=== PATIENT | female | born 1930 | race Caucasian/White ===

== ENCOUNTER 2016-12-03 15:58 | Inpatient (IN) ==
[2016-12-03] MEDS ORDERED: Vancomycin 1,000 MG in D5% in Water 250 ML IVPB ONE (16:47)
[2016-12-03 16:55] LABS: Basophils % 0.1 %; Hemoglobin 10.3 g/dL (11.5-15.4); Immature Granulocytes % 1.9 % (0-4); Lymphocytes # 0.3 K/mcL (0.6-4.6); Lymphocytes % 1.8 %; Mean Corpuscular HGB Conc 34.3 g/dL (31.6-35.5); Mean Corpuscular Hemoglobin 32.5 pg (28.0-33.3); Mean Corpuscular Volume 94.6 fL (83.0-100.0); Mean Platelet Volume 9.5 fL (9.4-12.4); Monocytes # 0.3 K/mcL (0.0-1.3); Monocytes % 1.5 %; Neutrophils # 17.1 K/mcL (1.6-8.9); Platelet Count 128 K/mcL (140-400); Red Blood Count 3.17 M/mcL (3.82-4.97); Red Cell Distribution Width 15.4 % (11.5-14.5); Segmented Neutrophils % 94.7 %
[2016-12-03 17:09] LABS: Albumin 2.8 g/dL (3.5-5.0); Albumin/Globulin Ratio 0.5 (1.1-2.2); Calcium 9.1 mg/dL (8.6-10.8); Globulin 5.1 g/dL (2.4-3.5); Potassium 3.6 mEq/L (3.5-4.5); Total Protein 7.9 g/dL (6.0-8.3)
--- NOTE | 2016-12-03 17:11 | Emergency Department Note ---
Disposition Clinical Impression: Cellulitis of leg, left Disposition: Admitted As Inpatient Condition: Fair Referrals: Rajan Flores CNP [Primary Care Provider] - Forms: ED Satisfaction Letter General Adult HPI - General Chief complaint: ED Skin/Abscess/Foreign Body Stated complaint: general illness Time Seen by Provider: 12/03/16 16:24 Source: patient, family, EMS Limitations: other Nursing Notes Reviewed: Yes Vital Signs Reviewed: Yes - History of Present Illness HPI Narrative: 86-year-old female was brought to the emergency department for evaluation of bilateral leg swelling and left leg redness. The patient has dementia and history is obtained from her granddaughter. Patient currently denies any pain, shortness of breath, nausea vomiting, or fevers. Granddaughter states that she has not seen the patient for a couple months and when she arrived at her home today she noticed that her legs were significantly swollen and her left leg to be red. Granddaughter states that she was taking care of her until the last couple months when her uncle took over. Granddaughter states that the only medicine she has been taking is her high blood pressure medicine. Granddaughter states she supposed to be on a water pill but does not know the name of it or whether not she has any of it at home. Patient is also supposed be taking Synthroid which granddaughter states has not been given to her as well. Pain Scale: 5 - Related Data Home Medications Medication Instructions Recorded Confirmed Amlodipine Besylate 5 mg PO BID 12/03/16 12/03/16 Allergies Allergy/AdvReac Type Severity Reaction Status Date / Time amlodipine [From Norvas] Allergy Itching Verified 07/09/15 14:05 losartan [Losartan] Allergy Itching Verified 07/09/15 14:05 metoprolol Allergy Itching Verified 07/09/15 14:05 aspirin AdvReac Gastrointestinal Verified 07/09/15 14:05 Upset hydrochlorothiazide AdvReac Itching Verified 07/09/15 14:05 lisinopril AdvReac See Verified 07/09/15 14:05 Comments Penicillins AdvReac Gastrointestinal Verified 07/09/15 14:05 Upset Sulfa (Sulfonamide AdvReac See Verified 07/09/15 14:05 Antibiotics) Comments Limitations: ROS unobtainable due to patients medical condition (secondary to dementia) Past Medical History - Past Medical History Attestation: Yes The following information was validated with the patient. 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 . The patient appears [asymptomatic], nontoxic, and [does not appear ill]. There is [no pain]. HENT: Head: Normocephalic and atraumatic. Right Ear: External ear normal. Left Ear: External ear normal. Nose: Nose normal. Mouth/Throat: Oropharynx is clear and mucous membranes show [good hydration.][] Eyes: Conjunctivae and EOM are normal. Pupils are equal, round, and reactive to light. Right eye exhibits [no] discharge. Left eye exhibits [no] discharge. Neck: Trachea is midline, normal range of motion and [phonation normal]. Neck supple. Cardiovascular: [Regular rhythm], S1 normal, S2 normal, normal heart sounds and intact distal pulses. Exam reveals no gallop and no friction rub. No murmur heard. [Capillary refill is brisk.] [Peripheral pulses are 2+] Pulmonary/Chest: Effort [normal] No stridor. [No] tachypnea. [No] respiratory distress. There are [no] decreased breath sounds. [There no wheezes, no rhonchi , or rales.] Abdominal: Soft. [Bowel sounds are normal]. There exhibits [no] distension and [no] mass. There is no hepatosplenomegaly. There is [no tenderness], [no] CVA tenderness. There is [no rigidity, no rebound, no guarding]. Musculoskeletal: Normal range of motion of uninvolved extremities. There exhibits 2+ pitting edema. left lower extremity shows redness from her foot up to her mid calf Neurological: Patient is alert. Patient displays no atrophy and no tremor. No cranial nerve deficit and exhibits normal muscle tone. Coordination normal. Skin: Skin is warm and dry. No rash noted. No erythema. [Skin color is normal.} Psychiatric: Patient has a normal mood,affect, behavior, judgment, and thought content. Course Course Narrative: Patient shows evidence of elevated white count. I will speak with Dr. Camarena's about admission. He will accept the patient on admission. Vital Signs Temperature 98.3 F 12/03/16 16:09 Pulse Rate 94 12/03/16 16:09 Respiratory Rate 18 12/03/16 16:09 Blood Pressure 151/88 12/03/16 16:09 O2 Sat by Pulse Oximetry 97 12/03/16 16:09 Temperature 98.3 F 12/03/16 16:09 Pulse Rate 94 12/03/16 16:09 Respiratory Rate 18 12/03/16 16:09 Blood Pressure 151/88 12/03/16 16:09 O2 Sat by Pulse Oximetry 97 12/03/16 16:09 Oxygen Delivery Oxygen Delivery Room Air Medical Decision Making - Lab Data Lab results reviewed: Yes I reviewed the patient's lab results. Result diagrams: 12/03/16 16:40 12/03/16 16:40 Lab Results 12/03/16 12/03/16 12/03/16 Range/Units 16:40 16:40 18:15 WBC 18.1 H (4.3-11.1) K/mcL RBC 3.17 L (3.82-4.97) M/mcL Hgb 10.3 L (11.5-15.4) g/dL Hct 30.0 L (35.3-44.9) % MCV 94.6 (83.0-100.0) fL MCH 32.5 (28.0-33.3) pg MCHC 34.3 (31.6-35.5) g/dL RDW 15.4 H (11.5-14.5) % Plt Count 128 L (140-400) K/mcL MPV 9.5 (9.4-12.4) fL Immature Gran % 1.9 (0-4) % Seg Neutrophils % 94.7 % Lymphocytes % 1.8 % Monocytes % 1.5 % Eosinophils % 0.0 % Basophils % 0.1 % Neutrophils # 17.1 H (1.6-8.9) K/mcL Lymphocytes # 0.3 L (0.6-4.6) K/mcL Monocytes # 0.3 (0.0-1.3) K/mcL Eosinophils # 0.0 (0.0-0.6) K/mcL Basophils # 0.0 (0.0-0.2) K/mcL VBG Lactic Acid 2.8 H (0.5-2.2) mmol/L Sodium 133 L (136-145) mEq/L Potassium 3.6 (3.5-4.5) mEq/L Chloride 97 L (98-109) mEq/L Carbon Dioxide 26 (19-29) mEq/L BUN 27 H (7-20) mg/dL Creatinine 1.34 H (0.57-1.11) mg/dL Est GFR ( Amer) 46 L (> 60) Est GFR (Non-Af Amer) 38 L (> 60) BUN/Creatinine Ratio 20 (6-26) Glucose 99 (70-99) mg/dL Calculated Osmolality 281 (280-300) Calcium 9.1 (8.6-10.8) mg/dL Total Bilirubin 1.0 (0.2-1.2) mg/dL AST 27 (5-34) Units/L ALT 10 (0-55) Units/L Alkaline Phosphatase 138 H (38-126) Units/L Serum Total Protein 7.9 (6.0-8.3) g/dL Albumin 2.8 L (3.5-5.0) g/dL Globulin 5.1 H (2.4-3.5) g/dL Albumin/Globulin Ratio 0.5 L (1.1-2.2) - Radiology Data Radiology results reviewed: Yes I reviewed the patient's radiology results. XR/XR chest 1V portable IMPRESSION: Left pleural effusion with left basilar opacity that may represent consolidation from pneumonia versus atelectasis. Multiple pulmonary nodules suggesting calcified granulomata, however increase in number since prior [address] may be helpful for further evaluation. Increased prominence of the right hilar shadow may be secondary to vascular prominence. Again, chest CT may be helpful further evaluation.
[2016-12-03] MEDS ORDERED: Naloxone 0.4 MG/ML INJ IVP PRN (18:29)
[2016-12-03] MEDS ORDERED: MOM Conc 10 ML UD.LIQ PO PRN (18:29)
[2016-12-03] MEDS ORDERED: Ondansetron ODT 4 MG TAB.RAPDIS SL PRN (18:29)
[2016-12-03] MEDS ORDERED: amLODIPine 5 MG TABLET PO SCH (21:00)
--- NOTE | 2016-12-03 22:14 | Internal Med History&Physical ---
Date of Encounter: 12/03/16 Time of Encounter: 21:33 Assessment and Plan (1) Cellulitis of leg, left Current visit: Yes Status: Acute Cellulitis of the left lower extremity. Cultures were obtained tonight. She was given vancomycin in the ER and will start Rocephin intravenously. She needs better hygiene and will be given a shower tomorrow. The present time I do not think the lesions on her legs are from bedbugs, none were seen. D-dimer ordered to help rule out DVT. Likely the edema is dependent edema from being in the wheelchair a lot of the time. We have been told that she was on a " water pill" in the past, the old records show she was on chlorthalidone but that was discontinued for hypertension several months ago. (2) Pleural effusion, left Current visit: Yes Status: Acute Left pleural effusion. Cannot rule out pneumonia. She also has multiple pulmonary nodules. Clinically her lungs are clear and symptomatically she denies any pulmonary symptoms. We will get a follow-up chest x-ray and/or CT scan when she is improved and more mobile from prior cellulitis (3) Dementia Current visit: Yes Status: Acute She is a poor historian, she admits does not remember things well. She also has hypothyroidism and I suspect subtherapeutic on her medication. TSH has been ordered. B12 will be ordered. There is lots of social situation problems at home and she likely needs reliable 24-hour care. Qualifiers: Dementia type: unspecified type Qualified Code(s): F03.90 - Unspecified dementia without behavioral disturbance (4) Hypertension Current visit: Yes Status: Chronic History of hypertension chronically. Has been on amlodipine. It is not been refilled in a while according to the pharmacies when called in the ER. For now we will hold medications, follow her blood pressure and decide whether she needs treatment or not. Qualifiers: Hypertension type: essential hypertension Qualified Code(s): I10 - Essential (primary) hypertension (5) Hypothyroidism Current visit: Yes Status: Acute History of hypothyroidism. According to the family she has not been taking this medication. TSH is pending. Qualifiers: Hypothyroidism type: unspecified Qualified Code(s): E03.9 - Hypothyroidism , unspecified (6) Aortic aneurysm Current visit: Yes Status: Chronic She has a known aortic aneurysm that measured 5 cm in diameter couple of years ago. She met with Dr. Warner a vascular specialist and she did not want intervention. Again she tonight said she "does not want them with a cut on her. " She confirms that she is not to have life-support. "When God is ready he will take me and I will have to go" Qualifiers: Presence of rupture: without rupture Qualified Code(s): I71.9 - Aortic aneurysm of unspecified site, without rupture (7) Pulmonary nodules Current visit: Yes Status: Chronic She has had multiple pulmonary nodules in the past as well. Looks worse now. We will decide workup based on her other medical problems. She apparently has not wanted workup in the past. No pulmonary symptoms currently. She does have a pleural effusion will be reassessed later. (8) High risk social situations Current visit: Yes Status: Acute It is unclear as to how well she is taking care of at home by the granddaughter Luly. The son looks in on her every day. I cannot reach Luly. Two phone numbers that I tried are no longer working. The patient appears to be unkempt, dirt or feces is caked between her toes and in her sandals. She is obviously not bathe in a while. She is not very mobile. She has not been getting her medications refilled according to the pharmacy. She admits she has a poor memory. The son confirms that she does not leave the house. Has not been grocery shopping etc. (though she thinks she has been). It appears that she will need 24-hour care, I am not sure she can get that at home right now. There has been rumors amongst the staff that of heard that the caregiver situation is involved in drugs or recent rehab. (9) Physical deconditioning Current visit: Yes Status: Acute Patient is generally weak. According to the son she does not walk more than a few steps. She is basically couch and wheelchair bound. We will have her be evaluated by physical therapy and occupational therapy. I suspect that she has not been getting her thyroid supplement and she may be profoundly hypothyroid. I believe she will benefit from therapies. She may need long-term care/ECF. (10) Chronic kidney disease Current visit: Yes Status: Acute Her creatinine is elevated. She has had elevated creatinine in the past. This may be prerenal. She will have IV fluids and then reevaluate. This may be acute kidney injury on chronic kidney disease. Qualifiers: Chronic kidney disease stage: unspecified stage Qualified Code(s): N18.9 - Chronic kidney disease, unspecified (11) DVT prophylaxis Current visit: Yes Status: Acute Lovenox was ordered by the ER physician. Internal Medicine - H&P: HPI Chief complaint: I do not know why I am here Admitted From: Emergency Dept Plans for Post Hospital Care: Home History of present illness: Ms. Estrada is a 86 year old female who is a patient of nurse practitioner Rajan Flores, but patient has not been in the office since July of this year and his had no-show appointments since then. The history is rather vague from the patient because she states she does not remember very well. She does not know why she is in the hospital. Conversation with the ER physician and with her son Frederick via phone reveals that the patient was brought to the emergency room because of swelling in her legs. Her son Frederick looks in on her daily but a granddaughter Luly Estrada lives with her. The son knew that the patient was taking blood pressure pill twice a day. He thought that was only thing that she had recently. He said at one time she took a water pill, but does not think she takes a day longer. He did not mention the thyroid pill. He states that she sleeps on the couch, when she is up and around she is usually in a wheelchair. She can walk a few steps when she is in the bathroom. Otherwise she is fairly wheelchair or couch bound. She says she likes to watch TV and listens to music. She cannot tell me what type of music she likes to listen to. Frederick says that she takes a bath and that Luly's responsibility, but he admits it has likely been a while since she has had a bath. She does not really leave the house. He says she has had cognitive decline since her about a year and a half ago. He states she would not want to be on life support. She confirms this. She also wants no intervention for her aortic aneurysm. She does admit that she is a smoker but cannot tell me how many times she smokes or when she had her last cigarette. She does not smell like she is a smoker. Information from the office chart reveals that there is a phone call stating that a grandson was living with her for a while and he was cooking and doing drugs in the home. The patient states she does not know anything about a grandson living in the home, she states she has been taking care of her granddaughter Luly since she was born because her mother did not want her. Patient is not sure if she has 2 sons or not. She does list Frederick and Bryson to me, but she does not know which one is Luly's father. She states she just does not remember many things Regarding why she is here, she did not know that she has an infection in her left lower extremity. She did not know that she has swelling in the lower extremities. She really denies any acute or chronic medical problems other than she does not remember well. The son does not know how long she has had redness or swelling. Past Med Surg Social Fam HX - Past Medical History Source: patient (At times the patient really did not know the answer), old records reviewed Medical history: aortic aneurysm (She has refused operative intervention, last measurement was 5 cm a couple of years ago), hypertension, thyroid disease Psychiatric history: anxiety - Past Surgical History Surgical History: other (Lumbar discectomy 1972) - Social History Smoking Status: Current every day smoker (She cannot tell me how many cigarettes she smokes. Her office record states that she smokes up to a pack a day since age 20. She does not know when her last cigarette was though.) Smokeless Tobacco Status: No Alcohol use: none Drug use: none - Family History Father Living Status: Age at : 67 Hx Family Cancer: Yes ("Stomach cancer") Mother Living Status: Age at : 93 Hx Family Endocrine Disorder: Yes (History of diabetes) Brother History Unknown: Yes (All of her family lives in [facility], not sure about how her brothers or sisters or their medical problems) Internal Medicine - H&P: Meds Amlodipine Besylate 5 mg PO BID 12/03/16 [History] Allergies losartan [Losartan] Allergy (Verified 07/09/15 14:05) Itching metoprolol Allergy (Verified 07/09/15 14:05) Itching amlodipine [From Norvasc] Adverse Reaction (Mild, Verified 12/03/16 19:08) Itching aspirin Adverse Reaction (Verified 07/09/15 14:05) Gastrointestinal Upset hydrochlorothiazide Adverse Reaction (Verified 07/09/15 14:05) Itching lisinopril Adverse Reaction (Verified 07/09/15 14:05) See Comments Penicillins Adverse Reaction (Verified 07/09/15 14:05) Gastrointestinal Upset Sulfa (Sulfonamide Antibiotics) Adverse Reaction (Verified 07/09/15 14:05) See Comments ROS unobtainable: other (Review of systems is hard to evaluate as she states she has a poor memory.) - Constitutional Constitutional: no fever(s), no falls, no night sweats - EENT Eyes: no loss of vision Ears: no decreased hearing, no ear discharge, no ear pain Nose, mouth and throat: no neck pain, no sore throat - Cardiovascular Cardiovascular ROS IM: no chest pain, no dyspnea, no dyspnea on exertion, no irregular heart rhythm, no lightheadedness, no palpitations, no syncope - Respiratory Respiratory: no cough, no hemoptysis, no dyspnea on exertion, no wheezing, no chest congestion - Gastrointestinal Gastrointestinal: no abdominal pain, no constipation, no diarrhea, no hematemesis, no melena, no nausea, no vomiting - Genitourinary Genitourinary: no difficulty voiding, no dysuria, no pelvic pain, no urinary frequency Menstruation: post menopausal - Musculoskeletal Musculoskeletal ROS IM: no arthralgias, no back pain, no deformity, no joint swelling, no muscle weakness - Integumentary Integumentary IM: no new lesions, no rash, no skin ulcer, no unusual bruising, no jaundice - Neurological Neurological ROS: as per HPI (She does note that she does not remember things well), no focal weakness, no frequent falls, no radicular pain, no tremor(s), no weakness - Psychiatric Psychiatric: memory loss, no auditory hallucinations, no depression, no suicidal ideation - Hematologic/Lymphatic Hematologic/Lymphatic: no easy bruising, no lymphadenopathy - Constitutional Vitals: Temp Pulse Resp BP Pulse Ox 97.8 F 89 17 157/80 98 12/03/16 19:21 12/03/16 19:21 12/03/16 19:21 12/03/16 19:21 12/03/16 19:21 General appearance: Present: cachectic, A&O X 1, disheveled, no acute distress. Absent: answers questions appropriately (She repeatedly says that she has a poor memory just does not remember) - Head Head exam: Present: atraumatic - Eye Eye exam: Present: EOMI. Absent: scleral icterus Pupils: Present: PERRL - ENT ENT exam: Present: mucous membranes moist, normal oropharynx (Except she has full set of dentures), TM's normal bilaterally - Neck Neck exam general surgery: Absent: lymphadenopathy, tenderness, nuchal rigidity , thyromegaly - Respiratory Respiratory exam: Present: CTAB - Cardiovascular Cardiovascular exam: Present: RRR (Minor sinus arrhythmia noted.), +S1, +S2. Absent: systolic murmur - GI/Abdominal GI/Abdominal exam: Present: normal bowel sounds, no peritoneal signs. Absent: guarding, mass, rigid, tenderness - Extremities Exam Extremities exam: Present: normal capillary refill. Absent: calf tenderness, joint swelling Additional comments: Both lower extremities show mild pitting edema. The left is worse than the right. Left lower extremity shows erythema in the distal three quarters of the lower leg and the foot and toes. It is warm/hot. Multiple small scratches and pinpoint excoriated areas are noted. Old scars from previous lesions noted. She has good dorsalis pedis pulse. She has dirt and debris between her toes. Negative Homans sign. There is no skin breakdown such as decubitus. No calf tenderness. No posterior popliteal masses. No thigh tenderness or lesions. No linear streaks. Surprisingly the lower extremity is not very tender. - Back Exam Back exam: Absent: rash noted, vertebral tenderness - Neurological Exam Neurological exam: Present: alert, CN II-XII intact, strengths equal and symetr throughout - Psychiatric Psychiatric exam: Present: flat affect, normal mood. Absent: suicidal ideation - Skin Skin exam: Present: erythema (Left lower extremity as discussed above.) Additional comments: Bruise noted over the left upper buttock area, purple in color and measuring about 8 cm in diameter Internal Med - H&P Results - Labs CBC & Chem 7: 12/03/16 16:40 12/03/16 16:40 Labs: White blood cell count is elevated. Creatinine is elevated. Mild anemia and mildly diminished platelets - EKG Data EKG shows normal: sinus rhythm (The sinus arrhythmia) - Diagnostic Studies Chest x-ray Additional comments: Chest x-ray shows left pleural effusion. No obvious infiltrate. Multiple areas of nodules in the lungs bilaterally.
[2016-12-03] MEDS ORDERED: 0.9 % Sodium Chloride 1,000 ML ONE (22:46)
[2016-12-03] MEDS ORDERED: *HR* Enoxaparin 30 MG/0.3 ML SYRINGE SQ SCH (23:45)
[2016-12-04] MEDS: 0.9 % Sodium Chloride 1,000 ML IVC SCH (00:03)
[2016-12-04 05:33] LABS: Basophils % 0.1 %; Eosinophils % 0.1 %; Hematocrit 25.7 % (35.3-44.9); Hemoglobin 8.9 g/dL (11.5-15.4); Immature Granulocytes % 1.3 % (0-4); Lymphocytes # 0.5 K/mcL (0.6-4.6); Mean Corpuscular HGB Conc 34.6 g/dL (31.6-35.5); Mean Corpuscular Hemoglobin 32.6 pg (28.0-33.3); Mean Corpuscular Volume 94.1 fL (83.0-100.0); Mean Platelet Volume 9.4 fL (9.4-12.4); Monocytes # 0.3 K/mcL (0.0-1.3); Monocytes % 1.8 %; Neutrophils # 14.1 K/mcL (1.6-8.9); Platelet Count 102 K/mcL (140-400); Red Blood Count 2.73 M/mcL (3.82-4.97); Red Cell Distribution Width 15.4 % (11.5-14.5); Segmented Neutrophils % 93.7 %
[2016-12-04 05:43] LABS: Calcium 8.3 mg/dL (8.6-10.8); Potassium 3.6 mEq/L (3.5-4.5)
[2016-12-04] MEDS ORDERED: *HR* Enoxaparin 30 MG/0.3 ML SYRINGE SQ SCH (07:00)
[2016-12-04] MEDS: *HR* Enoxaparin 60 MG/0.6 ML SYRINGE SQ SCH ×2 (09:23→21:50)
--- NOTE | 2016-12-04 12:39 | Internal Med Progress Note ---
Date of Encounter: 12/04/16 Time of Encounter: 12:33 - Assessment and plan (1) Cellulitis of leg, left Current Visit: Yes Status: Acute Assessment and plan: Cellulitis is minimally improved, less swelling today. The skin is weeping though. Continue with the Rocephin. Blood cultures are pending. (2) Pleural effusion, left Current Visit: Yes Status: Acute Assessment and plan: History of pleural effusion on admission. We will recheck in the next day or so. No pulmonary symptoms. (3) Dementia Current Visit: Yes Status: Acute Assessment and plan: Her dementia is chronic. Her TSH came back elevated at 91. Some of this exacerbation may be from hypothyroidism. B12 level was normal. VDRL is pending. Qualifiers: Dementia type: unspecified type Qualified Code(s): F03.90 - Unspecified dementia without behavioral disturbance (4) Hypertension Current Visit: Yes Status: Chronic Assessment and plan: High blood pressure is actually under control with no medications. We will just monitor for now and the amlodipine was held. Qualifiers: Hypertension type: essential hypertension Qualified Code(s): I10 - Essential (primary) hypertension (5) Hypothyroidism Current Visit: Yes Status: Acute Assessment and plan: TSH is elevated at 91. Likely she has not been taking her medication. We will restart her Synthroid at the last recorded dose. Qualifiers: Hypothyroidism type: unspecified Qualified Code(s): E03.9 - Hypothyroidism , unspecified (6) Aortic aneurysm Current Visit: Yes Status: Chronic Assessment and plan: She is not to have intervention. She has no symptoms localizing to this. Qualifiers: Presence of rupture: without rupture Qualified Code(s): I71.9 - Aortic aneurysm of unspecified site, without rupture (7) Pulmonary nodules Current Visit: Yes Status: Chronic Assessment and plan: History of pulmonary nodules. She does have a pleural effusion. She did not want interventions regarding the aortic aneurysm. I do not think that intervention for the pulmonary nodules is desired by the patient. She is a DNR CCA (8) High risk social situations Current Visit: Yes Status: Acute Assessment and plan: I spoke with son Frederick today and he thinks that her color is better. youth worker has spoken to son Rick and granddaughter Luly. Apparently Rick has power of deli cutter slicer, but does not visit his mother very often. Luly takes care of her in the home but states that the check goes to Rick and bills are not getting paid. In any case, all are in agreement that ECF placement at [facility] is appropriate and to be arranged. (9) Physical deconditioning Current Visit: Yes Status: Acute Assessment and plan: Once we find out whether she has a DVT in the left lower extremity weak and then initiate PT and OT. She will need ECF placement for ongoing therapies as well. (10) Chronic kidney disease Current Visit: Yes Status: Chronic Assessment and plan: Improvement in her acute kidney injury. She does have a history of chronic kidney disease. Some of this was prerenal. Likely she has stage III likely she has stage III chronically. She seems to be taking adequate by mouth and we will discontinue the IV fluids. Qualifiers: Chronic kidney disease stage: stage 3 (moderate) Qualified Code(s): N18.3 - Chronic kidney disease, stage 3 (moderate) (11) DVT prophylaxis Current Visit: Yes Status: Acute (12) Thrombocytopenia Current Visit: Yes Status: Acute Assessment and plan: She had mild thrombocytopenia on admission, slightly worse today. Still platelets are over 100,000. Doubt this is related to her Lovenox. No active bleeding. We will follow. We will hold Lovenox if her count drops significantly. (13) Anemia Current Visit: Yes Status: Acute Assessment and plan: She had mild anemia on admission, and it dropped after hydration. Some of this may be from hemoconcentration. Hemoccult testing to be done. The anemia may be from chronic renal disease, GI loss, nutritional, hypothyroidism, etc. She is not a great candidate for upper and lower endoscopy workup of this. She is hemodynamically stable. We will check her iron levels. Qualifiers: Anemia type: unspecified type Qualified Code(s): D64.9 - Anemia, unspecified - Subjective Interval history: Patient rested well last night. She had a shower this morning. She denies any cardiac respiratory symptoms. When I sat her up she complained of left medial thigh pain temporarily. She has been eating well. She has a good appetite. Her son Frederick was in and he remarked how much better she looked today and better color. We talked about future plans and her likely to require physical therapy and [facility] placement at least temporarily and she prefers [facility]. She seems to be quite agreeable with that plan - Constitutional Vitals: Temp Pulse Resp BP Pulse Ox 98.3 F 68 16 132/79 96 12/04/16 11:15 12/04/16 11:15 12/04/16 11:15 12/04/16 07:22 12/04/16 11:15 General appearance: Present: A&O X 2, no acute distress. Absent: answers questions appropriately (She cannot recall my name, but recognized me. She repeats herself a lot) - Respiratory Respiratory exam: Present: CTAB. Absent: respiratory distress, wheezes - Cardiovascular Cardiovascular exam: Present: RRR, +S1, +S2. Absent: gallop, systolic murmur - GI/Abdominal GI/Abdominal exam: Present: normal bowel sounds, soft. Absent: tenderness - Extremities Exam Additional comments: The left lower extremity is still reddened to the same extent. The left is still warm. There are some areas that are now weeping. There is no skin breakdown on the heel. There is a bit less edema bilaterally particularly at the anterior ankle area showing some wrinkles. Intermittently she has some left medial thigh tenderness but no cords, redness, linear streaks, and she has good range of motion of the hip passively. Internal Medicine: Result - Labs CBC & Chem 7: 12/04/16 05:10 12/04/16 05:10 Labs: Short CBC 12/04/16 Range/Units 05:10 WBC 15.0 H (4.3-11.1) K/mcL Hgb 8.9 L (11.5-15.4) g/dL Hct 25.7 L (35.3-44.9) % Plt Count 102 L (140-400) K/mcL Neutrophils # 14.1 H (1.6-8.9) K/mcL BMP 12/04/16 05:10 Sodium 130 L Potassium 3.6 Chloride 97 L Carbon Dioxide 25 BUN 27 H Creatinine 1.16 H Glucose 91 Calcium 8.3 L White blood cell count is improved. I suspect her blood was hemoconcentrated as her hemoglobin dropped from 10 down to 8.9 after hydration. We will check Hemoccult. Her platelet count continues to be low but adequate for now, we will continue to monitor. Creatinine is improved after hydration. Her sodium dropped a bit with hydration. Right now she is eating adequately and we will likely not need further IV fluids - ABG Interpretation ABG results: PT/INR, D-dimer D-Dimer > 8520 ng/mLFEU (0-500) H 12/03/16 21:43 Consult Discharge Plan - Plan Referrals: Otilio Camarena MD [Primary Care Provider] -
[2016-12-04] MEDS: Acetaminophen 325 MG TABLET PO PRN (22:35)
[2016-12-05 04:57] LABS: Basophils % 0.1 %; Eosinophils % 0.2 %; Hemoglobin 7.9 g/dL (11.5-15.4); Immature Granulocytes % 0.7 % (0-4); Lymphocytes # 0.6 K/mcL (0.6-4.6); Lymphocytes % 4.8 %; Mean Corpuscular HGB Conc 34.3 g/dL (31.6-35.5); Mean Corpuscular Hemoglobin 32.4 pg (28.0-33.3); Mean Corpuscular Volume 94.3 fL (83.0-100.0); Mean Platelet Volume 9.7 fL (9.4-12.4); Monocytes # 0.3 K/mcL (0.0-1.3); Monocytes % 2.8 %; Platelet Count 108 K/mcL (140-400); Red Blood Count 2.44 M/mcL (3.82-4.97); Red Cell Distribution Width 15.3 % (11.5-14.5); Segmented Neutrophils % 91.4 %
[2016-12-05 05:11] LABS: Calcium 7.9 mg/dL (8.6-10.8); Potassium 3.5 mEq/L (3.5-4.5)
[2016-12-05] MEDS: 0.9 % Sodium Chloride 1,000 ML IVC SCH (07:40)
--- NOTE | 2016-12-05 08:28 | Electrocardiograph Report ---
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
--- NOTE | 2016-12-05 09:27 | Internal Med Progress Note ---
Date of Encounter: 12/05/16 Time of Encounter: 09:21 - Assessment and plan (1) Cellulitis of leg, left Current Visit: Yes Status: Acute Assessment and plan: Definite improvement of the left lower extremity cellulitis. Still a long way to go. Venous ultrasound to rule out DVT planned for today. (2) Pleural effusion, left Current Visit: Yes Status: Acute Assessment and plan: History of incidental left pleural effusion on admission chest x-ray. When patient is more mobile we will repeat that with the standing AP and lateral chest x-ray. No obvious congestive heart failure or pneumonia. She does have edema/myxedema from her hypothyroidism which could contribute to this. (3) Dementia Current Visit: Yes Status: Acute Assessment and plan: Pleasant dementia. She repeats herself a lot. She does not know some of the answers but today she knew my name. She frequently says "I just do not remember " Qualifiers: Dementia type: unspecified type Qualified Code(s): F03.90 - Unspecified dementia without behavioral disturbance (4) Hypertension Current Visit: Yes Status: Chronic Assessment and plan: Blood pressure intermittently is elevated, but for the most part under reasonable control without medication. We will continue to follow. Qualifiers: Hypertension type: essential hypertension Qualified Code(s): I10 - Essential (primary) hypertension (5) Hypothyroidism Current Visit: Yes Status: Acute Assessment and plan: Her levothyroxine was restarted. Qualifiers: Hypothyroidism type: unspecified Qualified Code(s): E03.9 - Hypothyroidism , unspecified (6) Aortic aneurysm Current Visit: Yes Status: Chronic Assessment and plan: No symptoms or signs localizing to the aortic aneurysm. She does not want any intervention anyway. Qualifiers: Presence of rupture: without rupture Qualified Code(s): I71.9 - Aortic aneurysm of unspecified site, without rupture (7) Pulmonary nodules Current Visit: Yes Status: Chronic Assessment and plan: Repeat chest x-ray to be done when she is more mobile. We will consider CT scan , but I am not sure going to make a difference in the long run for this patient who does not want intervention for her aortic aneurysm and is DNR CCA. (8) High risk social situations Current Visit: Yes Status: Acute Assessment and plan: We anticipate placement at [facility] on Saturday. (9) Physical deconditioning Current Visit: Yes Status: Acute Assessment and plan: We will initiate PT and OT once we rule out DVT. (10) Chronic kidney disease Current Visit: Yes Status: Chronic Assessment and plan: She has a history of chronic kidney disease, stage III generally. However, with fluids her creatinine has now much improved. We will continue to follow. Likely she had acute kidney injury from dehydration and/or the infection. Underlying kidney disease is likely from her hypertension. Qualifiers: Chronic kidney disease stage: stage 3 (moderate) Qualified Code(s): N18.3 - Chronic kidney disease, stage 3 (moderate) (11) Thrombocytopenia Current Visit: Yes Status: Acute Assessment and plan: When she was admitted she had relatively low platelets, it is now stable. We will plan to continue Lovenox for now particularly if we are trying to rule out DVT. (12) Anemia Current Visit: Yes Status: Acute Assessment and plan: Her hemoglobin continues to drift downward. Initially it may have been falsely improved with hemoconcentration. No active bleeding is noted. She has not had a good bowel movement to test for GI bleed. Some of the anemia may be reactive to her acute kidney injury, possibly malnutrition, etc. We will continue to monitor. Hemodynamically stable and not needing transfusion. She is not a great candidate right now to workup anemia with upper and lower endoscopies. She does not want intervention for her aortic aneurysm, and she is DNR CCA. I think there is a definite limit that she is placed on intervention. Qualifiers: Anemia type: unspecified type Qualified Code(s): D64.9 - Anemia, unspecified (13) DVT prophylaxis Current Visit: Yes Status: Acute - Subjective Interval history: Patient denies any chest pain, palpitations, dyspnea, abdominal pain. She thinks her leg is getting better. She denies any pain. He has been eating well. She slept well last night. She has no new complaints. Last night nurse reported that the patient had left thigh pain, but patient does not remember that. Having no complaints today. - Constitutional Vitals: Temp Pulse Resp BP Pulse Ox 97.6 F 65 16 132/72 98 12/05/16 07:17 12/05/16 07:17 12/05/16 07:17 12/05/16 07:17 12/05/16 07:17 General appearance: Present: A&O X 2, no acute distress - Respiratory Respiratory exam: Present: CTAB. Absent: respiratory distress - Cardiovascular Cardiovascular exam: Present: RRR, +S1, +S2. Absent: systolic murmur - GI/Abdominal Additional comments: Abdomen is slightly distended but soft. No tenderness. Her bowels have not moved well. - Extremities Exam Additional comments: Left lower extremity is less red and hot. The extent of the erythema is receding. She does have an area of weeping of clear fluid in the lateral ankle area. She is able to move her foot. No calf tenderness. No skin breakdown on her heel. Less edema and starting to have some wrinkles in both ankles. She has no tenderness in the thigh. She has good passive range of motion of the hip. No pain with movement of the knee. Internal Medicine: Result - Labs CBC & Chem 7: 12/05/16 04:48 12/05/16 04:48 Labs: Short CBC 12/05/16 Range/Units 04:48 WBC 12.0 H (4.3-11.1) K/mcL Hgb 7.9 L (11.5-15.4) g/dL Hct 23.0 L (35.3-44.9) % Plt Count 108 L (140-400) K/mcL Neutrophils # 11.0 H (1.6-8.9) K/mcL BMP 12/05/16 04:48 Sodium 130 L Potassium 3.5 Chloride 98 Carbon Dioxide 23 BUN 24 H Creatinine 1.09 Glucose 77 Calcium 7.9 L hemoglobin has slowly dropped to 7.9. No stool for heme testing available yet. Sodium stable 130. Creatinine has normalized. Platelet count stable at 108. White blood cell count is almost normal. - ABG Interpretation ABG results: PT/INR, D-dimer D-Dimer > 8520 ng/mLFEU (0-500) H 12/03/16 21:43 Consult Discharge Plan - Plan Referrals: Otilio Camarena MD [Primary Care Provider] -
[2016-12-05] MEDS: *HR* Enoxaparin 60 MG/0.6 ML SYRINGE SQ SCH (10:35)
[2016-12-05 11:28] LABS: % Iron Saturation 12 % (15-50); Iron 20 mcg/dL (50-170); Transferrin 121 mg/dL (180-382)
[2016-12-05] MEDS: *HR* Rivaroxaban 15 MG TABLET PO SCH (20:29)
[2016-12-06 05:32] LABS: Basophils % 0.3 %; Eosinophils % 0.3 %; Hematocrit 21.2 % (35.3-44.9); Hemoglobin 7.3 g/dL (11.5-15.4); Immature Granulocytes % 1.5 % (0-4); Lymphocytes # 0.7 K/mcL (0.6-4.6); Lymphocytes % 6.3 %; Mean Corpuscular HGB Conc 34.4 g/dL (31.6-35.5); Mean Corpuscular Hemoglobin 32.7 pg (28.0-33.3); Mean Corpuscular Volume 95.1 fL (83.0-100.0); Mean Platelet Volume 9.5 fL (9.4-12.4); Monocytes # 0.6 K/mcL (0.0-1.3); Monocytes % 5.3 %; Platelet Count 129 K/mcL (140-400); Red Blood Count 2.23 M/mcL (3.82-4.97); Red Cell Distribution Width 15.2 % (11.5-14.5); Segmented Neutrophils % 86.3 %
[2016-12-06 05:34] LABS: Calcium 7.8 mg/dL (8.6-10.8); Potassium 3.3 mEq/L (3.5-4.5)
--- NOTE | 2016-12-06 08:19 | Internal Med Progress Note ---
Date of Encounter: 12/06/16 Time of Encounter: 08:00 - Assessment and plan (1) Cellulitis of leg, left Current Visit: Yes Status: Acute Assessment and plan: Cellulitis of the left lower extremity is showing improvement. White blood cell count is normal. She has had no fever. Continue with the Rocephin for now. We are planning long-term placement for ongoing care. (2) Acute deep vein thrombosis (DVT) of left lower extremity Current Visit: Yes Status: Acute Assessment and plan: Verbal report to me was that she has an acute DVT of the left lower extremity that has extended into the femoral area. I do not have a written report yet. Within 24 hours of her admission we had placed her on Lovenox at therapeutic doses for presumed DVT. We have now switched to Xarelto and discontinued Lovenox Qualifiers: Qualified Code(s): I82.402 - Acute embolism and thrombosis of unspecified deep veins of left lower extremity (3) Pleural effusion, left Current Visit: Yes Status: Acute Assessment and plan: She had a small left pleural effusion on admission. Follow-up chest x-ray to be done today. She is having no respiratory symptoms. This may be from her hypothyroidism, anemia or other etiology. She does have pulmonary nodules. She is not particularly interested in a workup or aggressive care. (4) Dementia Current Visit: Yes Status: Acute Assessment and plan: Pleasantly cognitively impaired. She does remember my name sometimes though. She is uncertain of answers to questions. It is difficult for her to follow more than 1 step command. She needs 24-hour supervision and care. We are planning ECF placement. Qualifiers: Dementia type: unspecified type Qualified Code(s): F03.90 - Unspecified dementia without behavioral disturbance (5) Hypertension Current Visit: Yes Status: Chronic Assessment and plan: Hypertension is under good control without medication. Her med/amlodipine was held on admission, I am not sure she was really taking them anyway. Qualifiers: Hypertension type: essential hypertension Qualified Code(s): I10 - Essential (primary) hypertension (6) Hypothyroidism Current Visit: Yes Status: Acute Assessment and plan: Her levothyroxine had been restarted during this hospital stay. Her TSH was 91. Qualifiers: Hypothyroidism type: unspecified Qualified Code(s): E03.9 - Hypothyroidism , unspecified (7) Aortic aneurysm Current Visit: Yes Status: Chronic Assessment and plan: She refuses intervention. She has declined intervention for the past few years. Qualifiers: Presence of rupture: without rupture Qualified Code(s): I71.9 - Aortic aneurysm of unspecified site, without rupture (8) Pulmonary nodules Current Visit: Yes Status: Chronic Assessment and plan: Follow-up chest x-ray today. She is not a great candidate for further workup, CT or biopsy interventions given her unwillingness to intervene regarding her aortic aneurysm. (9) High risk social situations Current Visit: Yes Status: Acute Assessment and plan: She will be going to [facility] tomorrow if things go as planned and patient stable. (10) Physical deconditioning Current Visit: Yes Status: Acute Assessment and plan: PT and OT will be evaluating patient today. I like to see what they can do for her ADLs, transfers, being up in the room, grooming and dressing etc. I am not anticipating aggressive therapy as she does have an acute DVT. (11) Chronic kidney disease Current Visit: Yes Status: Chronic Assessment and plan: Her creatinine is slightly worse today, but improved from admission. Qualifiers: Chronic kidney disease stage: stage 3 (moderate) Qualified Code(s): N18.3 - Chronic kidney disease, stage 3 (moderate) (12) Thrombocytopenia Current Visit: Yes Status: Acute Assessment and plan: Thrombocytopenia is improved. (13) Anemia Current Visit: Yes Status: Acute Assessment and plan: Her hemoglobin is now down to 7.3. I am not sure how much of this is from hemoconcentration and then rehydration, acute kidney injury causing anemia, chronic disease and malnutrition causing anemia etc. We have not been able to capture stool for heme testing. She does have iron deficiency anemia. She does not quite meet recommendations for transfusion at this time. She is hemodynamically stable. Iron supplementation has been started. She is not a great candidate for upper and lower endoscopies at this time. Qualifiers: Anemia type: unspecified type Qualified Code(s): D64.9 - Anemia, unspecified (14) DVT prophylaxis Current Visit: Yes Status: Acute - Subjective Interval history: Patient denies any chest pain, palpitation, dyspnea. She has been eating well and has a good appetite. She is not requiring anything special for pain for the left lower extremity. She has a poor memory but does recall that she has gotten infection in her left lower extremity. She denies any thigh pain or hip pain. She does recall that she will be going to a long-term instead of going home. She denies any other acute symptoms or problems currently. - Constitutional Vitals: Temp Pulse Resp BP Pulse Ox 98.5 F 72 16 142/67 97 12/06/16 07:33 12/06/16 07:33 12/06/16 07:33 12/06/16 07:33 12/06/16 07:33 General appearance: Present: A&O X 2, no acute distress - Respiratory Additional comments: Lungs are clear except for a few atelectatic crackles in both bases. No respiratory distress. - Cardiovascular Cardiovascular exam: Present: RRR, +S1, +S2. Absent: systolic murmur - GI/Abdominal GI/Abdominal exam: Present: soft. Absent: mass, tenderness - Extremities Exam Additional comments: The erythema warmth and induration of the left lower extremity is receding. Generalized less redness. Not particularly tender. Some wrinkles are appearing in the lower ankle area. No linear streaks going up her leg. No fight tenderness. No masses palpable. No cords present. Good passive range of motion of the hip and knee. Scant amount of clear weeping from an open area in the left lateral calf area. No calf tenderness. Good range of motion of the foot and ankle actively. Negative Homans sign. Internal Medicine: Result - Labs CBC & Chem 7: 12/06/16 05:15 12/06/16 05:15 Labs: Short CBC 12/06/16 Range/Units 05:15 WBC 10.5 (4.3-11.1) K/mcL Hgb 7.3 L (11.5-15.4) g/dL Hct 21.2 L (35.3-44.9) % Plt Count 129 L (140-400) K/mcL Neutrophils # 9.0 H (1.6-8.9) K/mcL BMP 12/06/16 05:15 Sodium 134 L Potassium 3.3 L Chloride 100 Carbon Dioxide 25 BUN 18 Creatinine 1.12 H Glucose 87 Calcium 7.8 L Hemoglobin has dropped further to 7.3. White blood cell count is now normal. Platelet count is 129,000. Potassium low at 3.3. We will plan to recheck. She is not on a diuretic. Creatinine is slightly worse than yesterday but improved from baseline. - ABG Interpretation ABG results: PT/INR, D-dimer D-Dimer > 8520 ng/mLFEU (0-500) H 12/03/16 21:43 Consult Discharge Plan - Plan Referrals: Otilio Camarena MD [Primary Care Provider] -
[2016-12-06] MEDS: Acetaminophen 325 MG TABLET PO PRN (10:20)
[2016-12-06] MEDS: *HR* Rivaroxaban 15 MG TABLET PO SCH ×2 (10:20→19:53)
--- NOTE | 2016-12-06 15:37 | Physician Discharge Referral ---
ExtendedCare Referral Info Transfer To: [facility] Provider in Charge: Jayjay Provider in Charge after Transfer: Other () Institutional Level of Care: Skilled - Diagnosis (1) Cellulitis of leg, left Status: Acute (2) Acute deep vein thrombosis (DVT) of left lower extremity Status: Acute (3) Pleural effusion, left Status: Acute (4) Dementia Status: Acute (5) Hypertension Status: Chronic (6) Hypothyroidism Status: Acute (7) Aortic aneurysm Status: Chronic (8) Pulmonary nodules Status: Chronic (9) High risk social situations Status: Acute (10) Physical deconditioning Status: Acute (11) Chronic kidney disease Status: Chronic (12) Thrombocytopenia Status: Acute (13) Anemia Status: Acute (14) DVT prophylaxis Status: Acute - Transfer Medications Home Medications: Acetaminophen [Tylenol] 650 mg PO Q6HR PRN #0 tablet 12/06/16 [Rx] Ferrous Sulfate 325 mg PO TIDWM tablet 12/06/16 [Rx] Levothyroxine [Synthroid] 200 mcg PO DAILY@0630 tablet 12/06/16 [Rx] Rivaroxaban [Xarelto] 15 mg PO BID tablet 12/06/16 [Rx] Allergies/Adverse Reactions: Allergies losartan [Losartan] Allergy (Verified 12/04/16 02:39) Itching metoprolol Allergy (Verified 12/04/16 02:39) Itching amlodipine [From Norvasc] Adverse Reaction (Mild, Verified 12/04/16 02:39) Itching aspirin Adverse Reaction (Verified 12/04/16 02:39) Gastrointestinal Upset hydrochlorothiazide Adverse Reaction (Verified 12/04/16 02:39) Itching lisinopril Adverse Reaction (Verified 12/04/16 02:39) See Comments Penicillins Adverse Reaction (Verified 12/04/16 02:39) Gastrointestinal Upset Sulfa (Sulfonamide Antibiotics) Adverse Reaction (Verified 12/04/16 02:39) See Comments - Respiratory Orders Smoking Cessation: Smoking cessation has been advised. For more information, call the [place] Tobacco Quit Line at 0-203-AALC-NOW. - Ancillary Orders May use pressure relief devices daily prn, May consult with Dentist, Circulation Representative, Adult Daycare Coordinator PRN - Advance Directives Power of Operator Electronic Warfare: Yes Code Status: DNR-Arrest - Mobility Orders Ambulate - Rehabiliation Orders Rehab Potential: Good Rehab Orders: Evaluation for Physical Therapy, Evaluation for Occupational Therapy - Treatments Skin tear care topically daily PRN per policy - Diet Orders No Added Salt (SUSAN) CERTIFICATION: I certify that the transfer of the above named patient to an Extended Care Facility is necessary for the continuing treatment of the diagnosis listed. The above information is true and accurate reflection of patient's current condition. Confidential - Redisclosure prohibited without a patient's written consent.
--- NOTE | 2016-12-06 17:20 | Venous Imaging Report ---
LE Venous Duplex Patient Name:Tray Estrada Order Number:[id number] Procedure Date:12/05/2016 Date:1930ge:86 yrs Gender:Female Location:[facility] OP Room #: 112 Sales Effectiveness Manager:Flores Cruz RVT Referring MD:Otilio Camarena MD addiction therapist:Same as Ordering Provider Reading MD:Juan F Mckinney MD Primary Indications:elevated d-dimer, swelling Secondary Indications: Risk Factors Yes/No Hx of DVT No Impressions: Lower extremity abnormal deep exam: left common femoral through popliteal vein demonstrates acute thrombosis. Recommendations: Critical findings reported to Nurse in person by Flores Cruz RVT. Findings Venous Duplex Results: Right: Venous imaging of the lower extremity reveals full patency and normal vessel compressibility of the right common femoral. Doppler signals in the evaluated veins were normal. Left: Venous imaging of the lower extremity reveals full patency and normal vessel compressibility of the left distal iliac and left great saphenous. Doppler signals in the evaluated veins were normal. There is an acute partially occlusive thrombus seen in the left common femoral. It demonstrates a partially compressible vein. Flow was phasic and it did augment. There is an acute partially occlusive thrombus seen in the left superficial femoral. It demonstrates a partially compressible vein. Flow was phasic and it did augment. There is an acute partially occlusive thrombus seen in the left popliteal. It demonstrates a partially compressible vein. Flow was phasic and it did augment. The left posterior tibial, left peroneal and left lesser saphenous veins were not assessed. Prior Study: No prior study available for comparison. Lower Extremity Venous Duplex Side Vein Compress Spontaneous Flow Augment Diameter (cm) Depth (cm) Left Distal Iliac Normal yes Phasic yes Left Common Femoral Partial yes Phasic yes Left Superficial Femoral Partial yes Phasic yes Left Popliteal Partial yes Phasic yes Left Posterior Tibial Left Peroneal Left Great Saphenous Normal yes Phasic yes Left Lesser Saphenous Right Common Femoral Normal yes Phasic yes Updated by Juan F Mckinney MD on 12/06/2016 5:13:53 PM electronically signed on 12/06/2016 5:14:05 PM with status of Final
[2016-12-07 05:39] LABS: Basophils % 0.1 %; Eosinophils # 0.1 K/mcL (0.0-0.6); Eosinophils % 1.3 %; Hematocrit 21.7 % (35.3-44.9); Hemoglobin 7.4 g/dL (11.5-15.4); Immature Granulocytes % 4.4 % (0-4); Lymphocytes # 0.7 K/mcL (0.6-4.6); Lymphocytes % 8.3 %; Mean Corpuscular HGB Conc 34.1 g/dL (31.6-35.5); Mean Corpuscular Hemoglobin 32.2 pg (28.0-33.3); Mean Corpuscular Volume 94.3 fL (83.0-100.0); Mean Platelet Volume 8.9 fL (9.4-12.4); Monocytes # 0.6 K/mcL (0.0-1.3); Monocytes % 6.8 %; Neutrophils # 6.5 K/mcL (1.6-8.9); Platelet Count 135 K/mcL (140-400); Red Cell Distribution Width 15.3 % (11.5-14.5); Segmented Neutrophils % 79.1 %
[2016-12-07 05:45] LABS: BUN/Creatinine Ratio 15 (6-26); Blood Urea Nitrogen 15 mg/dL (7-20); Carbon Dioxide 26 mEq/L (19-29); Chloride 102 mEq/L (98-109); Glucose 80 mg/dL (70-99); Osmolality,Calculated 282 (280-300); Potassium 3.7 mEq/L (3.5-4.5); Sodium 136 mEq/L (136-145); eGFR For African Americans > 60 (> 60); eGFR For Non-African Americans 52 (> 60)
--- NOTE | 2016-12-07 06:53 | Discharge Summary ---
Date of Encounter: 12/07/16 Time of Encounter: 06:44 - Discharge Diagnosis (1) Acute deep vein thrombosis (DVT) of left lower extremity Priority: Primary Status: Acute Comments: Patient was admitted initially to the hospital with cellulitis of the left lower extremity. She was subsequently found to have a DVT in the left lower extremity from the common femoral to the posterior popliteal vein. She was on Lovenox pending the venous ultrasound and then switched to Xarelto. Intermittently she has left medial thigh pain, typically no complaints. She has had no pulmonary symptoms. We are not certain as to whether she had the DVT because of decreased mobility because of the cellulitis of the left lower extremity or vice versa. She will continue anticoagulation at the [facility] Qualifiers: Qualified Code(s): I82.402 - Acute embolism and thrombosis of unspecified deep veins of left lower extremity (2) Cellulitis of leg, left Priority: Secondary Status: Acute Comments: Patient has cellulitis of left lower extremity. Blood cultures were negative. She was placed on Rocephin has had significant improvement. There is still residual redness and warmth distal three quarters of the left lower extremity and foot, posteriorly the entire lower extremity is erythematous. The swelling has improved dramatically. She does have a scant amount of clear weeping fluid in the left lateral calf area. She has a dressing over the right anterior mullen for an open lesion. Her white blood cell count was elevated on admission, and is normal at time of discharge. After her dose of Rocephin the day she will be switched to Ceftin. (3) Pleural effusion, left Priority: Secondary Status: Acute Comments: On admission she was found to have small amount of pleural effusion. On repeat film she has small amount of bilateral pleural effusion. No obvious CHF. No respiratory symptoms. No obvious signs of neoplasm. She was edematous when she was admitted. She is also hypothyroid. We did not initiate further workup for the pleural effusion. Given her DNR CCA status and wanted no intervention for her aortic aneurysm, we did not intervene further. (4) Dementia Priority: Secondary Status: Acute Comments: She has mild dementia. She repeats herself frequently. Socially she has appropriate conversation though. She frequently will say that she does not remember things. It is difficult for her to follow more than 1 step command. With replacement of thyroid this may show improvement. She needs 24-hour care though. She has had no hallucinations or unusual behaviors. Qualifiers: Dementia type: unspecified type Qualified Code(s): F03.90 - Unspecified dementia without behavioral disturbance (5) Hypertension Priority: Secondary Status: Chronic Comments: Intermittently during her hospital course her blood pressure has gotten up to the 150s and 160s systolic. This morning blood pressure 137/87. When she was admitted she was on amlodipine at home. We are not sure whether she was taking it or not. She has allergies or intolerances to jeffery inhibitors, ARB's, hydrochlorothiazide , beta blockers. I am going to have her resume low-dose amlodipine. Hopefully this will not contribute to edema of the lower extremities. EVEN THOUGH HER ALLERGY LIST SAYS AMLODIPINE GIVES HER ITCHING, SHE WAS ON IT LONG-TERM WITHOUT PROBLEMS. Qualifiers: Hypertension type: essential hypertension Qualified Code(s): I10 - Essential (primary) hypertension (6) Hypothyroidism Priority: Secondary Status: Acute Comments: Chronically she has a history of hypothyroidism. Unfortunate, she was not taking her levothyroxine at home. Her TSH is 91. Her usual dose of levothyroxine was restarted. Qualifiers: Hypothyroidism type: unspecified Qualified Code(s): E03.9 - Hypothyroidism , unspecified (7) Aortic aneurysm Priority: Secondary Status: Chronic Comments: Patient has a history of an aortic aneurysm measuring at least 5 cm in diameter. She has refused intervention for this. In the past she was seen by Dr. Warner the vascular surgeon who discussed her options. At that time she adamantly refused intervention. She continues to refuse intervention. She is a DNR CCA as well. She has had no symptoms with regard to this. Qualifiers: Presence of rupture: without rupture Qualified Code(s): I71.9 - Aortic aneurysm of unspecified site, without rupture (8) Pulmonary nodules Priority: Secondary Status: Chronic Comments: Her chest x-ray has shown some pulmonary nodules. Likely calcified granulomas. No obvious neoplastic changes noted. I did not pursue CT scan to evaluate further. She also has a history of long-standing tobacco use. (9) High risk social situations Priority: Secondary Status: Acute Comments: Her home situation is high risk. Her son checks in on her on a daily basis. Her granddaughter apparently is present to care for her and lives with her. However the patient came to us very unkempt, had cellulitis of the left lower extremity for a while, and nutritionally she is deficient. She had not picked up her prescription to pharmacy for couple of months or more. She was not compliant with her Synthroid dosing. Cognitively she cannot care for herself. Her son Rick is the power of privacy attorney but does not see her very frequently. The granddaughter complained that he receives her check but is not taking care of the bills. Currently she needs 24-hour nursing care. (10) Physical deconditioning Priority: Secondary Status: Acute Comments: When she came to us she was unable to walk. It took 2 person assistance to get to the bedside commode. At home she has been sleeping on the couch. At home she was using a walker. She is seeing PT and OT and has shown advancement. She is still weak and needs ongoing therapies. (11) Chronic kidney disease Priority: Secondary Status: Chronic Comments: She has a previous history of chronic kidney disease. When she came to us her creatinine was elevated from baseline with acute kidney injury. After rehydration with IV fluids her creatinine improved. Today her creatinine is normal. Her GFR is increasing. Likely some of her acute kidney injury was from dehydration/nutritional. The CKD may also be contributing to her anemia. Qualifiers: Chronic kidney disease stage: stage 3 (moderate) Qualified Code(s): N18.3 - Chronic kidney disease, stage 3 (moderate) (12) Thrombocytopenia Priority: Secondary Status: Acute Comments: She has had relative thrombocytopenia with platelets in the 100-110 range. As of today her platelet count is 135,000 range. She had no active bleeding. I wonder if this was partly due to her acute infection. The platelet count was low even prior to her Lovenox. (13) Anemia Priority: Secondary Status: Acute Comments: She had mild anemia on admission. Her hemoglobin dropped after rehydration with IV fluids. I suspect it may be hemoconcentrated on admission. Her hemoglobin got down to 7.3. It is now improved. She has had no active bleeding that we are aware of. We have been unable to get a stool sample appropriate for heme testing. She has had no active bleeding. Her B12 level was normal. Her iron level was low. Iron supplement was started 3 times a day. Currently she is not a great candidate for upper and lower endoscopy. Qualifiers: Anemia type: unspecified type Qualified Code(s): D64.9 - Anemia, unspecified (14) DVT prophylaxis Priority: Secondary Status: Inactive - Discharge Medications Prescriptions: Cefuroxime PO [Ceftin] 500 mg PO Q12HR #20 tablet Home Medications: Acetaminophen [Tylenol] 650 mg PO Q6HR PRN #0 tablet 12/06/16 [Rx] Ferrous Sulfate 325 mg PO TIDWM tablet 12/06/16 [Rx] Levothyroxine [Synthroid] 200 mcg PO DAILY@0630 tablet 12/06/16 [Rx] Rivaroxaban [Xarelto] 15 mg PO BID tablet 12/06/16 [Rx] Cefuroxime PO [Ceftin] 500 mg PO Q12HR #20 tablet 12/07/16 [Rx] amLODIPine [Norvasc] 2.5 mg PO DAILY tablet 12/07/16 [Rx] Allergies/Adverse Reactions: Allergies losartan [Losartan] Allergy (Verified 12/04/16 02:39) Itching metoprolol Allergy (Verified 12/04/16 02:39) Itching amlodipine [From Norvasc] Adverse Reaction (Mild, Verified 12/04/16 02:39) Itching aspirin Adverse Reaction (Verified 12/04/16 02:39) Gastrointestinal Upset hydrochlorothiazide Adverse Reaction (Verified 12/04/16 02:39) Itching lisinopril Adverse Reaction (Verified 12/04/16 02:39) See Comments Penicillins Adverse Reaction (Verified 12/04/16 02:39) Gastrointestinal Upset Sulfa (Sulfonamide Antibiotics) Adverse Reaction (Verified 12/04/16 02:39) See Comments Procedures/tests Complete & Pending: Procedures Performed prior 72 hours Category Date Time Status EV venous imaging LE LT Routine Y 12/05/16 01:07 Completed Laboratory Results - last 24 hr 12/04/16 12/07/16 12/07/16 05:10 05:25 05:25 WBC 8.2 RBC 2.30 L Hgb 7.4 L Hct 21.7 L MCV 94.3 MCH 32.2 MCHC 34.1 RDW 15.3 H Plt Count 135 L MPV 8.9 L Immature Gran % 4.4 H Seg Neutrophils % 79.1 Lymphocytes % 8.3 Monocytes % 6.8 Eosinophils % 1.3 Basophils % 0.1 Neutrophils # 6.5 Lymphocytes # 0.7 Monocytes # 0.6 Eosinophils # 0.1 Basophils # 0.0 Sodium 136 Potassium 3.7 Chloride 102 Carbon Dioxide 26 BUN 15 Creatinine 1.02 Est GFR ( Amer) > 60 Est GFR (Non-Af Amer) 52 L BUN/Creatinine Ratio 15 Glucose 80 Calculated Osmolality 282 Calcium 8.0 L VDRL NON REACTIVE Chest X-Ray 12/06/16 08:17 IMPRESSION: 1. Stable chest x-ray with small bilateral pleural effusions left greater than right. 2. Bilateral pulmonary nodules likely representing granulomas. 3. Cardiomegaly without overt failure. D/ / Jaylon Royal MD / Jaylon Royal MD Interpreting Provider: Jaylon Royal MD Date of admission: 12/04/16 00:45 Primary care physician: Otilio Camarena MD Consults: 12/06/16 08:02 Consult to Occupational Therapy [CONS] Routine Comment: Evaluate, develop and implement POC Reason for Consult: Dressing, ADLS,transfers Consult to Physical Therapy [CONS] Routine Comment: Evaluate, develop and implement POC Reason for Consult: ADLs, transfers,up in chair/room/toilet,has DVT but can work on these basic skills Discharging clinician: Otilio Camarena Anticipated date of discharge: 12/07/16 - Patient Status Disposition: Transfer SNF Condition: Fair Functional capacity at discharge: uses cane/walker Overall status at discharge: patient is not back to baseline - Discharge Instructions Follow Up With: Otilio Camarena MD [Primary Care Provider] - - Diet and Activity Activity: as per physical therapy Diet: low salt diet Interval History: Patient slept well overnight. She has no acute symptoms today. Specifically no chest pain, palpitations, dyspnea, abdominal pain, or lower extremity pain. She keeps asking about whether she can go home, she misses her dogs. I explained to her again that she is going to the skilled nursing and needs 24-hour nursing care. Hospital course: Ms. Estrada is a 86 year old female with known history of hypertension, chronic kidney disease, hypothyroidism was admitted with cellulitis of left lower extremity was also found to have an acute DVT in the common femoral down to the posterior popliteal vein. She was placed on Rocephin, was on Lovenox until DVT confirmed and then switched to Xarelto. The edema and redness of left lower extremity is markedly improved but still continued cellulitis is noted. She has had no symptoms from the DVT. Please see the above diagnoses, hospital course and treatment plans. Patient will be [facility] today. - Time Spent with Patient Total time spent providing and/or coordinating discharge services: - Constitutional Vitals: Temp Pulse Resp BP Pulse Ox 97.7 F 70 16 144/84 94 12/07/16 04:00 12/07/16 04:00 12/07/16 04:00 12/07/16 04:00 12/07/16 04:00 General appearance: Present: A&O X 2, no acute distress - Respiratory Respiratory exam: Present: CTAB - Cardiovascular Cardiovascular exam: Present: RRR, +S2. Absent: systolic murmur - GI/Abdominal GI/Abdominal exam: Present: soft. Absent: pulsatile mass, tenderness, no peritoneal signs - Extremities Exam Additional comments: Continued edema and redness of the left lower extremity but improved. Lower three quarters of the left leg anteriorly is still erythematous but less so. Posteriorly the entire lower leg is erythematous and edematous. Small amount of clear fluid seeping from an open area in the skin in left lateral calf. She has no localizing tenderness. The edema is much improved. She can move her foot and ankle without difficulty. Passive range of motion of the knee and hip is without pain. There is a small erythematous patch in the left knee area as well. She has good peripheral pulses. - Neurological Exam Additional comments: Patient is pleasant and cooperative, but she has mild cognitive deficits. She keeps repeating herself and her questions are repetitive. She rarely knows my name. She had to be reminded many times that she is going to the skilled nursing, which one and when. - Skin Additional comments: As examination above. She also has a protective dressing on the right anterior mullen from an open lesion.
[2016-12-07] MEDS: *HR* Rivaroxaban 15 MG TABLET PO SCH (07:27)
[2016-12-07 11:48] VITALS: BP 133/82
== END 2016-12-07 12:00 | DRG 603 ==
LOC: EMEROOGRE 15:58 → INPGRE 15:58
PROVIDERS: ADMIT Family Medicine; ATTEND Family Medicine